=== PATIENT | female | born 1950 | race Caucasian/White ===

== ENCOUNTER 2021-11-11 06:42 | Outpatient (CLI) | payer MEDICARE, OTHER ==
--- NOTE | 2021-11-11 09:51 | Ultrasound Report ---
PROCEDURE: Bladder INDICATIONS: MIXED INCONTINENCE TECHNIQUE: Real-time scanning was performed of the kidneys and bladder, with image documentation. COMPARISON: FINDINGS: Bladder: Pre-void bladder volume is 319 mL. Post-void residual is 35 mL. Pre-void images demonstra te no intraluminal masses or stones. On pre-void images, bilateral ureteral jets are noted with colo r Doppler interrogation. (Of note, ureteral jets may not be detectable in up to 25% of cases due to insufficient differences in specific gravity between ureteral and bladder urine). Miscellaneous: No free pelvic fluid. IMPRESSION: Minimal post void residual. Reviewed by: Devorah Reina MD on 11/11/2021 9:50 AM PST Approved by: Devorah Reina MD on 11/11/2021 9:50 AM [facility] Station ID: [id number]
== END 2021-11-11 06:43 | disposition home or self-care (01) ==
LOC: DI 06:42
PROVIDERS: ATTEND Physician Assistant
DX: N39.46 Mixed incontinence (principal)